=== PATIENT | male | born 1990 | race Caucasian/White ===

== ENCOUNTER 2016-07-27 08:35 | Emergency (ER) | payer OTHER ==
[2016-07-27 08:42] VITALS: BP 128/94; PULSE 81; TEMP 97.9; BMI 32.5
[2016-07-27] MEDS ORDERED: IBUPROFEN 400 MG TABLET (FP) PO ONE ×2 (09:10→09:28)
--- NOTE | 2016-07-27 09:16 | PDOC ---
History of Present Illness - General Chief Complaint: Ear Problem Stated Complaint: EAR INFECTION Time Seen by Provider: 07/27/16 08:53 History Source: Patient - History of Present Illness Timing/Duration: reports: week Associated Symptoms: reports: earache. denies: cough, facial pain, fever/chills , nasal congestion, nasal drainage, sore throat Past History - Past Medical History Allergies/Adverse Reactions: Allergies Allergy/AdvReac Type Severity Reaction Status Date / Time No Known Allergies Allergy Verified 07/27/16 08:39 Home Medications: Ambulatory Orders Amoxicillin - [Amoxicillin 500mg Capsule -] 500 mg PO BID 07/27/16 Ciprofloxacin HCl/Dexameth [Ciprodex Otic Suspension] 4 drop AU BID #1 bottle Ibuprofen [Motrin -] 800 mg PO Q6H #30 tablet 07/27/16 Other medical history: none - Psycho/Social/Smoking Cessation Hx Anxiety: No Suicidal Ideation: No Smoking Status: No Smoking History: Never smoked Have you smoked in the past 12 months: No Number of Cigarettes Smoked Daily: 0 Information on smoking cessation initiated: No Hx Alcohol Use: No Drug/Substance Use Hx: No Substance Use Type: None Review of Systems - Review of Systems Constitutional: No: Chills, Fever HEENTM: Yes: Ear Pain. No: Ear Discharge, Throat Pain Respiratory: No: Cough *Physical Exam - Vital Signs Last Vital Signs Temp Pulse Resp BP Pulse Ox 97.9 F 81 18 128/94 100 07/27/16 08:40 07/27/16 08:40 07/27/16 08:40 07/27/16 08:40 07/27/16 08:40 - Physical Exam General Appearance: Yes: Appropriately Dressed. No: Apparent Distress HEENT: positive: Normal Voice, Other (copious amount of purulent discharge in canal b/l, unable to visualize R TM, L TM wnl) Medical Decision Making - Medical Decision Making 07/27/16 09:18 26 yo M, currently on amoxicillin after being dx with otitis media to R ear at an urgent care center 4 days ago, p/w worsening pain to R ear. Taking alleve w/ no relief. Denies otorrhea, sore throat, f/c. Pt well cyndee in NAD w/ copious purulent discharge in canal b/l, unable to visualize R TM, L TM unremarkable. Will d/c with ciprodex for otitis externa. Pt to continue amoxicillin and pain control. To f/u with ENT as needed 07/27/16 09:24 07/27/16 09:25 *DC/Admit/Observation/Transfer Diagnosis at time of Disposition: Otitis externa Qualifiers: Otitis externa type: unspecified type Laterality: bilateral Chronicity: acute Qualified Code(s): H60.503 - Unspecified acute noninfective otitis externa, bilateral - Discharge Dispostion Disposition: HOME Condition at time of disposition: Good - Prescriptions Prescriptions: Ciprofloxacin HCl/Dexameth [Ciprodex Otic Suspension] 4 drop AU BID #1 bottle Ibuprofen [Motrin -] 800 mg PO Q6H #30 tablet - Referrals Referrals: Néstor Zarate MD, MD [Primary Care Provider] - Alejandro Child MD [Staff Physician] - - Patient Instructions Printed Discharge Instructions: DI for Otitis Externa Additional Instructions: Take medications as directed and follow up with ENT if no improvement
== END 2016-07-27 09:30 | disposition home or self-care (01) ==
LOC: JERFT 08:35
DX: H60.503 Unspecified acute noninfective otitis externa, bilateral (principal)
CPT/HCPCS: 99281-25

== ENCOUNTER 2016-12-14 19:52 | Emergency (ER) | payer OTHER ==
[2016-12-14 20:08] VITALS: BP 151/77; PULSE 103; TEMP 97.9; BMI 31.0
[2016-12-14] MEDS ORDERED: IBUPROFEN 400 MG TABLET (FP) PO ONE ×2 (21:04→21:07)
--- NOTE | 2016-12-14 21:30 | PDOC ---
History of Present Illness - General Chief Complaint: Pain Stated Complaint: FOOT PAIN Time Seen by Provider: 12/14/16 20:29 - History of Present Illness Initial Comments: 12/14/16 21:07 CHIEF COMPLAINT: pain to L foot HISTORY OF PRESENT ILLNESS: 26 yo M with no PMH presents to fast track with pain to L foot since yesterday morning. 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 Patient states that he is able to walk but the pain is worse when he steps down. PAST MEDICAL HISTORY: Denies past medical history FAMILY HISTORY: Denies SOCIAL HISTORY:Denies tobacco, alcohol, illicit drug use. SURGICAL HISTORY: Denies ALLERGIES: No known drug allergies REVIEW OF SYSTEMS General/Constitutional: Denies fever or chills. Denies weakness, weight change. HEENT: Denies change in vision. Denies ear pain or discharge. Denies sore throat. Cardiovascular: Denies chest pain or shortness of breath. Respiratory: Denies cough, wheezing, or hemoptysis. Gastrointestinal: Denies nausea, vomiting, diarrhea or constipation. Denies rectal bleeding. Genitourinary: Denies dysuria, frequency, or change in urination. Musculoskeletal: Pain to L foot. Denies joint or muscle swelling or pain. Denies neck or back pain. Skin and breasts: Denies rash or easy bruising. Neurologic: Denies headache, vertigo, loss of consciousness, or loss of sensation. PHYSICAL EXAM General Appearance: Well-appearing, appropriately dressed. No apparent distress. HEENT: EOMI, PERRLA. No photophobia, scleral icterus. Respiratory/Chest: Lungs CTAB. No shortness of breath, chest tenderness, respiratory distress, accessory muscle use. No crackles, rales, rhonchi, stridor , wheezing, dullness Cardiovascular: RRR. S1, S2. No JVD, murmur, bradycardia, tachycardia. Vascular Pulses: Dorsalis-Pedis (R): 2+, Dorsalis-Pedis (L): 2+ Gastrointestinal/Abdominal: Normal bowel sounds. Abdomen soft, non-distended. No tenderness or rebound tenderness. No organomegaly, pulsatile mass, guarding , hernia, hepatomegaly, splenomegaly. Lymphatic: No adenopathy, tenderness. Musculoskeletal/Extremities: Normal inspection. FROM of all extremities, normal capillary refill. Pelvis Stable. No CVA tenderness. No tenderness to extremities, pedal edema, swelling, erythema or deformity. Integumentary: Appropriate color, dry, warm. No cyanosis, erythema, jaundice or rash Neurologic: director visual II-XII intact. Fully oriented, alert. Appropriate mood/affect. Motor strength 5/5. No appreciable EOM palsy, facial droop or sensory deficit. Past History - Past Medical History Allergies/Adverse Reactions: Allergies Allergy/AdvReac Type Severity Reaction Status Date / Time No Known Allergies Allergy Verified 12/14/16 20:01 Home Medications: Ambulatory Orders Naproxen [Naprosyn -] 500 mg PO BID #28 tablet 12/14/16 Other medical history: Pt denies - Psycho/Social/Smoking Cessation Hx Anxiety: No Suicidal Ideation: No Smoking Status: No Smoking History: Never smoked Have you smoked in the past 12 months: No Number of Cigarettes Smoked Daily: 0 Information on smoking cessation initiated: No Hx Alcohol Use: No Drug/Substance Use Hx: No Substance Use Type: None *Physical Exam - Vital Signs Last Vital Signs Temp Pulse Resp BP Pulse Ox 97.9 F 103 H 19 151/77 98 12/14/16 20:01 12/14/16 20:01 12/14/16 20:01 12/14/16 20:01 12/14/16 20:01 ED Treatment Course - RADIOLOGY Radiology Studies Ordered: Category Date Time Status FOOT-LEFT [RAD] Stat Radiology 12/14/16 21:04 Ordered *DC/Admit/Observation/Transfer Diagnosis at time of Disposition: Plantar fasciitis of left foot - Discharge Dispostion Disposition: HOME Condition at time of disposition: Stable Admit: No - Prescriptions Prescriptions: Naproxen [Naprosyn -] 500 mg PO BID #28 tablet - Referrals Referrals: Néstor Zarate MD, MD [Primary Care Provider] - Cole Lacey MD [Staff Physician] - - Patient Instructions Printed Discharge Instructions: DI for Plantar Fasciitis Additional Instructions: Please take medication as prescribed. Follow up with Dr. Lacey if pain persists after 1-2 weeks. If you experience any shortness of breath, pain in your calf, loss of sensation/numbness/tingling to your foot or leg, or any new or worsening symptoms, please return to the ER.
== END 2016-12-14 22:18 | disposition home or self-care (01) ==
LOC: JER 19:52
DX: M72.2 Plantar fascial fibromatosis (principal)
CPT/HCPCS: 73630-TC-LT; 99281-25

== ENCOUNTER 2018-05-23 20:43 | Emergency (ER) | payer SELFPAY ==
[2018-05-23 20:54] VITALS: BP 186/84; PULSE 88; BMI 36.9
--- NOTE | 2018-05-23 20:56 | PDOC ---
Rapid Medical Evaluation Chief Complaint: Pain Time Seen by Provider: 05/23/18 20:54 Medical Evaluation: Allergies Allergy/AdvReac Type Severity Reaction Status Date / Time No Known Allergies Allergy Verified 12/14/16 20:01 Vital Signs Temp Pulse Resp BP Pulse Ox 88 18 186/84 H 100 05/23/18 20:52 05/23/18 20:52 05/23/18 20:52 05/23/18 20:52 05/23/18 20:55 I have performed a brief in-person evaluation of this patient. The patient presents with a chief complaint of:b/l testes pain x 2 days, R>L, no trauma. No sxs otherwise. No h/o same Pertinent physical exam findings:defer to ED I have ordered the following:ua/US The patient will proceed to the ED for further evaluation.
--- NOTE | 2018-05-23 22:26 | PDOC ---
History of Present Illness - General Chief Complaint: Pain Stated Complaint: PAIN Time Seen by Provider: 05/23/18 20:54 History Source: Patient Exam Limitations: No Limitations - History of Present Illness Travel History: No Initial Comments: 05/23/18 22:26 Best Contact: PCP: none Pmhx:denies Pshx:denies Allergies:NKDA FH:,aternal grandmohter leukemia/ at 76 yo Social Hx: Cigarettes/ 0 Alcohol/ social Drugs/0 Chart is dictated in front of the patient/vertical exam room. 28-year-old male presents to the ER complaining of right testicular swelling 2 days ago which she says he woke up with the swelling and discomfort. No fever, chills, nausea/vomiting, diarrhea, pain, problems voiding, hematuria, flank pains. Patient states he is sexually active using protection, condoms 6 months ago with one partner. No history of similar symptoms. No abdominal pains. Past History - Past Medical History Allergies/Adverse Reactions: Allergies Allergy/AdvReac Type Severity Reaction Status Date / Time No Known Allergies Allergy Verified 12/14/16 20:01 Home Medications: Ambulatory Orders NK [No Known Home Medication] 05/23/18 COPD: No - Suicide/Smoking/Psychosocial Hx Smoking Status: No Smoking History: Never smoked Have you smoked in the past 12 months: No Number of Cigarettes Smoked Daily: 0 Hx Alcohol Use: No Drug/Substance Use Hx: No Substance Use Type: None Review of Systems - Review of Systems Able to Perform ROS?: Yes Comments:: 05/23/18 22:26 CONSTITUTIONAL: Absent: fever, chills, diaphoresis, generalized weakness, malaise, loss of appetite HEENT: Absent: rhinorrhea, nasal congestion, throat pain, throat swelling, difficulty swallowing, mouth swelling, ear pain, eye pain, visual Changes CARDIOVASCULAR: Absent: chest pain, loss of consciousness, palpitations, irregular heart rate, peripheral edema RESPIRATORY: Absent: cough, shortness of breath, dyspnea with exertion, orthopnea, wheezing, stridor, hemoptysis GASTROINTESTINAL: +right testicular swelling Absent: abdominal pain, abdominal distension, nausea, vomiting, diarrhea, constipation, melena, hematochezia GENITOURINARY: Absent: dysuria, frequency, urgency, hesitancy, hematuria, flank pain, genital pain MUSCULOSKELETAL: Absent: myalgia, arthralgia, joint swelling SKIN: Absent: rash, itching, pallor Is the patient limited Serbian proficient: No *Physical Exam - Vital Signs Last Vital Signs Temp Pulse Resp BP Pulse Ox 88 18 186/84 H 100 05/23/18 20:52 05/23/18 20:52 05/23/18 20:52 05/23/18 20:52 - Physical Exam Comments: 05/23/18 22:26 GENERAL: Well developed, well nourished. Awake and alert. No acute distress. HEENT: Normocephalic, atraumatic. PERRLA, EOMI. No conjunctival pallor. Sclera are non- icteric. Moist mucous membranes. Oropharynx is clear. NECK: Supple. Full ROM. No JVD. Carotid pulses 2+ and symmetric, without bruits. No thyromegaly. No lymphadenopathy. CARDIOVASCULAR: Regular rate and rhythm. No murmurs, rubs, or gallops. Distal pulses are 2+ and symmetric. PULMONARY: No evidence of respiratory distress. Lungs clear to auscultation bilaterally. No wheezing, rales or rhonchi. ABDOMINAL: +swelling to right testicle/ neg prehns sign, neg erythema/drainage Soft. Non-tender. Non-distended. No rebound or guarding. No organomegaly. Normoactive bowel sounds. MUSCULOSKELETAL Normal range of motion at all joints. No bony deformities or tenderness. No CVA tenderness. EXTREMITIES: No cyanosis. No clubbing. No edema. No calf tenderness. SKIN: Warm and dry. Normal capillary refill. No rashes. No jaundice. Moderate Sedation - Procedure Monitoring Vital Signs: Procedure Monitoring Vital Signs Temperature Pulse Rate 88 05/23/18 20:52 Respiratory Rate 18 05/23/18 20:52 Blood Pressure 186/84 H 05/23/18 20:52 O2 Sat by Pulse Oximetry (%) 100 05/23/18 20:52 ED Treatment Course - RADIOLOGY Radiograph Interpretation: 05/23/18 22:30 Ultrasound scrotum and contents: No Doppler evidence of testicular torsion. Epididymal structures appear unremarkable bilaterally aside from incidental note is of 0.4 cm left epididymal head cyst. Small right hydrocele. No left hydrocele. Left-sided varicocele is noted with the patient in a recumbent position. Testes appear unremarkable in overall size, contour and echogenicity. No discrete testicular mass lesion is identified. There is possible mildly increased testicular vascularity bilaterally which may be on the basis of acute orchiits *DC/Admit/Observation/Transfer Diagnosis at time of Disposition: Orchitis of right testicle - Discharge Dispostion Condition at time of disposition: Stable Decision to Admit order: No - Referrals Referrals: Troy Mcghee MD., MD [Staff Physician] - - Patient Instructions Printed Discharge Instructions: Epididymitis Additional Instructions: It is imperative that you follow up with the urologist or the one listed on your discharge. Return to the ER for severe/persistent/worsening symptoms. - Post Discharge Activity
[2018-05-23 22:50] LABS: URINE APPEARANCE CLEAR; URINE BILIRUBIN NEGATIVE (<2.0 mg/dL); URINE COLOR LTYELLOW; URINE GLUCOSE (UA) NEGATIVE (NEGATIVE); URINE KETONE NEGATIVE (NEGATIVE); URINE LEUK ESTERASE NEGATIVE (NEGATIVE); URINE NITRITE NEGATIVE (NEGATIVE); URINE PROTEIN NEGATIVE (NEGATIVE); URINE UROBILINOGEN NEGATIVE mg/dL (0.2-1.0)
[2018-05-23] MEDS ORDERED: AZITHROMYCIN 500 MG TABLET PO ONE (23:24)
[2018-05-23] MEDS ORDERED: AZITHROMYCIN 500 MG TABLET ONE (23:39)
== END 2018-05-24 00:05 | disposition home or self-care (01) ==
LOC: JER 20:43
DX: N45.2 Orchitis (principal)
CPT/HCPCS: 36415; 76870-TC; 81003; 86593; 87389; 87491; 87591; 99281-25

== ENCOUNTER 2019-06-02 18:43 | Emergency (ER) | payer OTHER ==
[2019-06-02 20:06] VITALS: BMI 33.0
--- NOTE | 2019-06-02 20:06 | PDOC ---
Rapid Medical Evaluation Time Seen by Provider: 06/02/19 20:02 Medical Evaluation: Allergies Allergy/AdvReac Type Severity Reaction Status Date / Time No Known Allergies Allergy Verified 12/14/16 20:01 06/02/19 20:02 Pt c/o: placed on cipro for kidney infection but didn't complete, nasal bleeding upon wakening followed by a headache, fast breathing accompanied by numbness to arm, only complaint now with headache and mild right "kidney pain" Pt on brief exam: 140/90, Pt ordered for: ua , u cx, Pt to proceed to the ED Discharge Disposition - Diagnosis Headache - Referrals - Patient Instructions - Post Discharge Activity
--- NOTE | 2019-06-02 22:32 | PDOC ---
History of Present Illness - General Chief Complaint: Pain Stated Complaint: ABD PAIN/HEADACHE Time Seen by Provider: 06/02/19 20:02 History Source: Patient Exam Limitations: No Limitations - History of Present Illness Initial Comments: 06/02/19 22:25 HISTORY OF PRESENT ILLNESS: 29-year-old male presents emergency department for evaluation of resolved epistaxis which occurred while sleeping. Patient reports he took his scheduled dose of Cipro today when he awoke noted some blood from his left nare. Patient was concerned that the epistaxis was a side effect of Cipro. Patient has been taking Cipro as he was diagnosed with pyelonephritis on 05/30. Patient reports having some continued right flank pain which is not a new symptom. He denies fevers, chills, nausea, vomiting, dysuria , hematuria. No recent travel or sick contacts. PAST MEDICAL HISTORY: Denies past medical history SURGICAL HISTORY: Denies ALLERGIES: No known drug allergies REVIEW OF SYSTEMS General/Constitutional: Denies fever or chills. Denies weakness, weight change. HEENT: See HPI Cardiovascular: Denies chest pain or shortness of breath. Respiratory: Denies cough, wheezing, or hemoptysis. Gastrointestinal: Denies nausea, vomiting, diarrhea or constipation. Denies rectal bleeding. Genitourinary: Denies dysuria, frequency, or change in urination. Musculoskeletal: See HPI Skin and breasts: Denies rash or easy bruising. Neurologic: Denies headache, vertigo, loss of consciousness, or loss of sensation. Psychiatric: Denies depression or anxiety. Endocrine: Denies increased thirst. Denies abnormal weight change. Hematologic/Lymphatic: Denies anemia, easy bleeding, or history of blood clots. Allergic/Immunologic: Denies hives or skin allergy. Denies latex allergy. PHYSICAL EXAM General Appearance: Well-appearing, appropriately dressed. No apparent distress , no intoxication. HEENT: EOMI, PERRLA, normal ENT inspection, normal voice, TMs normal, pharynx normal. No conjunctival pallor. No photophobia, scleral icterus. Inflamed nasal passageways. No active bleeding present. Neck: Supple. Trachea midline. No tenderness, rigidity, carotid bruit, stridor , lymphadenopathy, or thyromegaly. Respiratory/Chest: Lungs CTAB. No shortness of breath, chest tenderness, respiratory distress, accessory muscle use. No crackles, rales, rhonchi, stridor , wheezing, dullness Cardiovascular: RRR. S1, S2. No JVD, murmur, bradycardia, tachycardia. Vascular Pulses: Dorsalis-Pedis (R): 2+, Dorsalis-Pedis (L): 2+ Gastrointestinal/Abdominal: Normal bowel sounds. Abdomen soft, non-distended. No tenderness or rebound tenderness. No organomegaly, pulsatile mass, guarding, hernia, hepatomegaly, splenomegaly. Lymphatic: No adenopathy, tenderness. Musculoskeletal/Extremities: Normal inspection. FROM of all extremities, normal capillary refill. Pelvis Stable. No CVA tenderness. No tenderness to extremities, pedal edema, swelling, erythema or deformity. Integumentary: Appropriate color, dry, warm. No cyanosis, erythema, jaundice or rash Neurologic: clinical nurse occupational medicine II-XII intact. Fully oriented, alert. Appropriate mood/affect. Motor strength 5/5. No appreciable EOM palsy, facial droop or sensory deficit. Past History - Past Medical History Allergies/Adverse Reactions: Allergies Allergy/AdvReac Type Severity Reaction Status Date / Time No Known Allergies Allergy Verified 06/02/19 20:06 Home Medications: Ambulatory Orders NK [No Known Home Medication] 05/23/18 COPD: No - Psycho Social/Smoking Cessation Hx Smoking Status: No Smoking History: Never smoked Have you smoked in the past 12 months: No Number of Cigarettes Smoked Daily: 0 Information on smoking cessation initiated: No Hx Alcohol Use: No Drug/Substance Use Hx: No Substance Use Type: None *Physical Exam - Vital Signs Last Vital Signs Temp Pulse Resp BP Pulse Ox 97.5 F L 75 18 140/91 99 06/02/19 20:02 06/02/19 20:02 06/02/19 20:02 06/02/19 20:02 06/02/19 20:02 Medical Decision Making - Medical Decision Making 06/02/19 22:28 A/P: 29-year-old male with resolved epistaxis. Physical exam reveals inflamed nasal passageways without any active bleeding. While patient does have right flank pain his absence of CVA tenderness I would continue with previously prescribed ciprofloxacin and to contact the prescriber for culture and sensitivity results tomorrow. Discharge home Discharge - Discharge Information Problems reviewed: Yes Clinical Impression/Diagnosis: Mild epistaxis Condition: Stable Disposition: HOME - Admission No - Follow up/Referral Referrals: Lee Rapp MD [Primary Care Provider] - - Patient Discharge Instructions Additional Instructions: Rest, drink lots of fluids: Teas, water, soups, Pedialyte Steamy showers/seem to face break up mucus Lots of handwashing and good hygiene May use [place] nasal spray which is an [id number] medication available at any pharmacy. Follow strategic planning specialist's instructions for appropriate dosage. Tylenol or Motrin for fever and pain Followup with private physician in one to 2 days as needed Return to emergency department for worsened symptoms, fevers, dehydration - Post Discharge Activity
--- NOTE | 2019-06-02 22:36 | PDOC ---
*Physical Exam - Vital Signs Last Vital Signs Temp Pulse Resp BP Pulse Ox 97.5 F L 75 18 140/91 99 06/02/19 20:02 06/02/19 20:02 06/02/19 20:02 06/02/19 20:02 06/02/19 20:02 Medical Decision Making - Medical Decision Making 06/02/19 22:36 Patient seen by the advanced practice provider under my direct supervision. Ancillary testing reviewed as necessary. I agree with plan as outlined by the advanced practice provider. Discharge - Discharge Information Problems reviewed: Yes Clinical Impression/Diagnosis: Mild epistaxis Condition: Stable Disposition: HOME - Follow up/Referral Referrals: Lee Rapp MD [Primary Care Provider] - - Patient Discharge Instructions Additional Instructions: Rest, drink lots of fluids: Teas, water, soups, Pedialyte Steamy showers/seem to face break up mucus Lots of handwashing and good hygiene May use [place] nasal spray which is an [id number] medication available at any pharmacy. Follow heel cutter's instructions for appropriate dosage. Tylenol or Motrin for fever and pain Followup with private physician in one to 2 days as needed Return to emergency department for worsened symptoms, fevers, dehydration - Post Discharge Activity
[2019-06-02 23:49] VITALS: BP 139/79; PULSE 74; TEMP 98.1
== END 2019-06-02 22:50 | disposition home or self-care (01) ==
LOC: JER 18:43
DX: R04.0 Epistaxis (principal); Z87.448 Personal history of other diseases of urinary system
CPT/HCPCS: 99281-25